=== PATIENT | male | born 1970 | race Caucasian/White ===

== ENCOUNTER 2017-11-09 03:57 | Emergency (ER) | payer OTHER ==
[~2017-11-09] VITALS: Ht 193 cm; Wt 114.9 kg
[2017-11-09 04:15] LABS: APPEARANCE CLEAR ((CLEAR)); BILIRUBIN NEGATIVE; BLOOD NEGATIVE; COLOR YELLOW ((YELLOW)); GLUCOSE (STRIP) NEGATIVE; KETONES NEGATIVE; LEUKOCYTES NEGATIVE; NITRITE NEGATIVE; PROTEIN (STRIP) NEGATIVE; SPECIFIC GRAVITY 1.028 (1.000-1.030); UCUL ADDED? NO; UROBILINOGEN 0.2 MG/DL (0.2-1.0)
[2017-11-09 04:32] LABS: BASOPHIL (%) 0.9 % (0-1); BASOPHIL COUNT 0.1 K/uL (0-0.1); EOSINOPHIL (%) 3.6 % (0-5); EOSINOPHIL COUNT 0.4 K/uL (0-0.3); HEMATOCRIT 45.8 % (38.0-50.0); HEMOGLOBIN 15.4 G/DL (12.5-16.6); IMMATURE GRANULOCYTE (%) 0.8 % (0.0-0.7); LYMPHOCYTE (%) 30.9 % (15-42); MCHC 33.6 G/DL (30.0-36.0); MCV 92.2 FL (86-99); MONOCYTE COUNT 1.1 K/uL (0-0.8); NEUTROPHIL (%) 52.8 % (45-76); NEUTROPHIL COUNT 5.2 K/uL (1.8-6.4); PLATELET COUNT 203 K/uL (156-360); RBC DIS.WIDTH-CV 13.5 % (11.8-14.6); RBC DIS.WIDTH-SD 45.5 % (39-53); RED BLOOD COUNT 4.97 M/uL (4.00-5.50); WHITE BLOOD COUNT 9.8 K/uL (4.1-10.2)
[2017-11-09 04:42] LABS: ALBUMIN 4.2 g/dL (3.2-4.8)
[2017-11-09 04:43] LABS: CHLORIDE 104 mEq/L (99-109); POTASSIUM 4.2 mEq/L (3.7-5.4); SODIUM 138 mEq/L (136-147)
[2017-11-09 04:45] LABS: GLUCOSE 85 mg/dL (70-99); TOTAL PROTEIN 6.9 g/dL (6.4-8.3)
[2017-11-09 04:47] LABS: TOTAL BILIRUBIN 0.4 mg/dL (0.0-1.0)
[2017-11-09 04:48] LABS: ALKALINE PHOSPHATASE 90 IU/L (3-129)
[2017-11-09 04:49] LABS: GFR ESTIMATE (CALCULATED) > 59 mL/min/ (58.99-99999)
[2017-11-09 04:50] LABS: AST (GOT) 24 IU/L (2-34); UREA NITROGEN (BUN) 13 mg/dL (9-23)
[2017-11-09 04:51] LABS: ALT (GPT) 41 IU/L (3-49)
[2017-11-09 04:52] LABS: LIPASE 21 U/L (1.0-51.0)
[2017-11-09] MEDS ORDERED: ZOFRAN ODT8 MG PO (06:27)
[2017-11-09] MEDS ORDERED: BENTYL20 MG PO (06:27)
[2017-11-09 06:41] VITALS: BP 114/80
== END 2017-11-09 06:43 | disposition home or self-care (01) ==
LOC: EME 03:57
PROVIDERS: Physician Assistant
DX: R10.10 Upper abdominal pain, unspecified (principal); R19.7 Diarrhea, unspecified; R11.0 Nausea; K21.9 Gastro-esophageal reflux disease without esophagitis; F17.200 Nicotine dependence, unspecified, uncomplicated
CPT/HCPCS: 74176; 80053; 81003; 83690; 85025; 85027; 99281; 99284